=== PATIENT | female | born 1975 | race Hispanic/Latino ===

== ENCOUNTER → 2016-12-21 | Outpatient (CLI) | payer OTHER ==
--- NOTE | 2016-12-21 17:03 | DI ---
XR MYELOGRAM, LUMBOSACRAL,12/21/2016 3:09 PM: Clinical History: Lumbar radiculopathy. Previous Exam: None at this facility. Procedure: Risks, benefits and alternatives were explained to the patient and informed written consen t obtained. The patient was placed supine on the fluoroscopy table and the lower back prepped and draped in usual sterile fashion. 1% lidocaine was used for local anesthesia. Under fluoroscopic guidance, a 6 cm 23-gauge spinal needle was advanced into the thecal sac at the L5 level. 4 vials of CSF were removed for laboratory analysis. 10 cc of Isovue 300 were then administered intrathecally. Images were obtained to document contrast within the thecal sac. The patient tolerated the procedure well and was sent to the CT scanner in good condition. Findings: Images demonstrate a needle at the L5 level. There is contrast noted within the lumbar and thoracic spine. Impression: Successful myelogram.
--- NOTE | 2016-12-22 09:22 | DI ---
CT THORACIC SPINE W/CONTRAST,12/21/2016 3:08 PM: Clinical History: Right sided lumbar radiculopathy. Previous Exam: None at this facility. Findings: Multiple helically acquired CT images are obtained through the thoracic spine following intrathecal a dministration of Isovue 300, and demonstrate anatomic alignment without fractures. Vertebral body hei ght is preserved. The spinal cord descends normally with normal course and caliber and a normal conus at the L1 level. The lungs are clear. Individual intervertebral disc spaces: T1/2: No significant stenosis. C2/3: No significant stenosis. C3/4: No significant stenosis. T4/T5: No significant stenosis. C5/6: No significant stenosis. C6/7: No significant stenosis. T7/8: No significant stenosis. T8/9: No significant stenosis. T9/T10: No significant stenosis. T10/11: There is disc desiccation and a broad-based disc bulge with some mild facet hypertrophy contr ibuting to mild bilateral neural foraminal narrowing. T11/12: There is a broad-based disc bulge without significant stenosis. T12/L1: No significant stenosis. Impression: Broad-based disc bulges at T. 10/11 and T. 11/12 without significant stenosis.
--- NOTE | 2016-12-22 09:22 | DI ---
CT LUMBAR SPINE W/CONTRAST,12/21/2016 3:08 PM: Clinical History: Right sided low back pain. Previous Exam: MRI lumbar spine performed March 28, 2016 Findings: Multiple helically acquired CT images are obtained through the lumbar spine after intrathecal adminis tration of Isovue 300, and demonstrate mild facet hypertrophy at the L4/5 level. There is ligamentum flavum hypertrophy and a broad-based disc bulge at this level which contributes to moderate central c anal stenosis with no significant neural foraminal narrowing. There is a broad-based disc bulge at the L2/3 level with some facet and ligamentum flavum hypertrophy contributing to mild central canal stenosis without significant neural foraminal narrowing. There is no significant stenosis at the L1/2 level. Limited evaluation of surrounding soft tissues is unremarkable. There is no evidence of spondylolysis nor spondylolisthesis. There is some fat stranding of the subcutaneous fat. Impression: Facet hypertrophy at the L4/5 level with a broad-based disc bulge contributing to moderate central ca nal stenosis with no significant neural foraminal narrowing. Broad-based disc bulge with mild facet and ligamentum flavum hypertrophy at the L2/3 level without si gnificant stenosis.
== END ==
LOC: RAD 15:06
PROVIDERS: ATTEND Neurological Surgery
DX: M54.16 Radiculopathy, lumbar region (principal); M54.6 Pain in thoracic spine
CPT/HCPCS: 62270; 72129; 72132; 72255; 72265

== ENCOUNTER 2016-12-24 15:20 | Emergency (ER) | payer OTHER ==
[2016-12-24] MEDS ORDERED: DEXAMETHASONE PF 10 MG/1 ML VIAL IV ONE (15:33)
[2016-12-24] MEDS ORDERED: diphenhydrAMINE 50 MG/1 ML VIAL IVP ONE (15:33)
[2016-12-24] MEDS ORDERED: Sodium Chloride 0.9% 1,000 ML PRIMARY IV ONE (15:33)
[2016-12-24] MEDS ORDERED: NORMAL SALINE 10 ML SYRINGE FLUSH IVP PRN (15:33)
[2016-12-24] MEDS ORDERED: Prochlorperazine Edisylate Inj 10mg/2ml vial IVP ONE (15:33)
[2016-12-24 15:35] VITALS: RESP 12; TEMP 95.5
[2016-12-24 16:13] LABS: BASOPHILS # (AUTO) 0.05 10*3/UL; BASOPHILS % (AUTO) 0.6 % (0-1); EOSINOPHILS # (AUTO) 0.22 10*3/UL; EOSINOPHILS % (AUTO) 2.8 % (0-8); HEMATOCRIT 44.4 % (37.0-47.0); HEMOGLOBIN 15.2 g/dL (12.0-16.0); LYMPHOCYTES # (AUTO) 2.26 10*3/uL; MEAN CORPUSCULAR HGB CONC 34.2 g/dL (33-37); MEAN CORPUSCULAR VOLUME 90.6 FL (81-99); MEAN PLATELET VOLUME 10.3 FL (7.4-12.2); MONOCYTES % (AUTO) 7.6 % (5-15); NEUTROPHILS # (AUTO) 4.78 10*3/UL; NEUTROPHILS % (AUTO) 60.2 % (50-80)
[2016-12-24 16:14] LABS: PLATELET MORPHOLOGY COMMENT NORMAL MORPHOLOGY (NORM); RBC MORPHOLOGY COMMENT NORMAL MORPHOLOGY (NORM); WBC MORPHOLOGY COMMENT NORMAL MORPHOLOGY (NORM)
[2016-12-24 16:27] LABS: BLOOD UREA NITROGEN 9 mg/dL (7-22); BUN/CREATININE RATIO 12.85 (6-20); C-REACTIVE PROTEIN 0.7 mg/dL (0.0-0.9); CALCIUM 9.2 mg/dL (8.7-10.7); EST GLOMERULAR FILTRATION > 60 (>60 ml/min/1.73m(2)); SERUM ALBUMIN 3.8 g/dL (3.5-4.8)
--- NOTE | 2016-12-24 18:55 | PDOC ---
Headache HPI - General Chief Complaint: Headache Stated Complaint: calderón, dizzy, nausea times 4 days Date Seen by Provider: 12/24/16 Time Seen by Provider: 15:30 Source: POSITIVE: Patient Exam Limitations: POSITIVE: No limitations Nurse's Notes Reviewed & Considered: Yes - History of Present Illness Initial Comments: The patient is a 41-year-old female who presents to the emergency department with headache. She states that 4 days ago she underwent a myelogram to evaluate her persistent right leg pain and numbness. She states that since the procedure she has had a headache. She has associated lightheadedness, sensitivity to light and smell, nausea. Her headache is significantly worsened with standing and improved with lying down. She has been trying to push fluids and take caffeine at home however has not had any significant improvement. She states that yesterday she had some subjective fevers and chills although none today. She denies any change in vision other than light sensitivity, numbness or weakness in her extremities except for her chronic symptoms, abdominal pain or any other associated symptoms. - Patient Home Medications Home Medications: Home Medications Albuterol Sulfate [Proair Hfa] 2 puff INH Q4-6H #1 inh 03/18/16 Fluticasone Propionate [Flonase Allergy Relief] 2 spr JOHN BID #1 spr 03/18/16 Ibuprofen 1 tab PO TID #90 tab 07/12/16 Carisoprodol 1 tab PO QHS #14 tab 08/11/16 Oxycodone HCl/Acetaminophen [Oxycodon-Acetaminophen 7.5-325] 1 tab PO Q6H #40 tab 10/03/16 Gabapentin 2 tab PO TID #180 tab 11/21/16 Promethazine HCl [Phenergan] 25 mg PO Q6H PRN #10 tab 12/24/16 - Patient Allergies Allergies/Adverse Reactions: Allergies Allergy/AdvReac Type Severity Reaction Status Date / Time hydrocodone Allergy Intermediate Rash, Verified 12/24/16 16:30 Itching cephalexin monohydrate Allergy Anaphylaxis Verified 12/24/16 16:30 [From Keflex] naproxen Allergy VOMITING Verified 12/24/16 16:30 cyclobenzaprine HCl AdvReac NOT Verified 12/24/16 16:30 [From Flexeril] APPLICABLE sulfamethoxazole AdvReac VOMITING Verified 12/24/16 16:30 [From Bactrim] trimethoprim [From Bactrim] AdvReac VOMITING Verified 12/24/16 16:30 Past Medical History - heen HEENT History: Other (please comment) Additional HEENT History: HX TONSILECTOMY Cardiovascular History: Other (please comment) Additional Cardiovasular History: Varicose veins Respiratory History: Asthma Additional Respiratory History: ADMITS HX ASTHMA BUT NOTHING SIG FOR YRS. ONLY HX OCC EPISODES Gastrointestinal History: Denies History Additional Gastrointestinal History: Appendecomy, RIGHT ANKLE, PARTIAL HYSTERECTOMY, APPENDECTOMY Genitourinary History: Denies History Endocrine History: Denies History Musculoskeletal History: Arthritis, Back Pain, Other (please comment) Prosthesis or Implant: No Additional Musculoskeletal History: APPROX ONE YEAR AGO HAD LEFT HAND INJURED FROM POP UP CAMPER AND SURGICALLY REPAIRED BY DR. TALBOT. FOOT SURGERY--had a cyst above ankle, had this removed, and had a cadaver bone graft. Neurological History: Migraines Blood Disorders: Denies History Psychiatric History: Anxiety Disorders Additional Psychiatric History: history of ETOH abuse History of Sexually Transmitted Diseases: No Cancer History: Denies History In Past Year Been Physically Harmed or Verbally Threatened: No History of MDRO: No History of Other Communicable Diseases: No Tobacco Use: Current Every Day Smoker Alcohol Use: Sober Substance Use Type: None Previous Surgical History: Yes Type / Date of Surgery: LORETTA SMITH 01/25/2016. TONSILS. SURGERY RIGHT ANKLE 2011. HYSTERECTOMY 2009. LEFT HAND Anesthesia Reactions: No Malignant Hyperthermia: No Significant Family History: No pertinent family hx Past Medical History Reviewed: Reviewed - No Changes ROS - Limitations ROS Limitations: No Limitations Constitution: REPORTS: Chills (Yesterday none today), Fever (Subjective fevers Yesterday, none today) Cardiovascular: REPORTS: Denies Cardiac Symptoms Respiratory: REPORTS: Denies Resp Symptoms Neurological: REPORTS: Headache, Dizziness. DENIES: Numbness, Fainting, Difficulty Walking, Seizure Activity, Dysphagia, Weakness Gastrointestinal: REPORTS: Nausea. DENIES: Vomitting Genitourinary: REPORTS: Denies Symptoms Eyes: REPORTS: Other (Light sensitivity) Headache Exam - General Appearance General Appearance: POSITIVE: Alert, Cooperative, No Acute Distress - HEENT Head / Face: POSITIVE: No Facial Swelling Eyes: POSITIVE: Inspection Normal, PERRL, EOM's Intact Ears: POSITIVE: Ears Normal Inspection, TM Normal Inspection Nose: POSITIVE: Inspection Normal Oropharynx: POSITIVE: External Inspection Nml - Neck Neck: POSITIVE: Normal Inspection. NEGATIVE: Lymphadenopathy - Respiratory / CVS Respiratory / CVS: POSITIVE: No Respiratory Distress, Heart Sounds Normal, Regular Rate/Rhythm, Breath Sounds Normal Peripheral Pulses: Dorsalis-pedis (R): 2+, Dorsalis-pedis (L): 2+ - Abdomen Abdomen: Soft: (All Quadrants), Denies Tenderness: (All Quadrants), No Distention: (All Quadrants) Additional Abdominal Details: Examination of the lower back at the site of the myelogram reveals no evidence of erythema, swelling or drainage - Skin Skin: POSITIVE: Intact - Extremities Extremity: Normal ROM: (All Extremities), Normal Inspection: (All Extremities) - Neuro / Psych Higher Functions: POSITIVE: Oriented x3, Normal Speech Cranial Nerves: POSITIVE: Normal As Tested Sensorimotor: POSITIVE: No Motor Deficits, No Sensory Deficits Headache Progress - Results Reviewed by me Lab Results Reviewed: Yes Lab Results:: Laboratory Results 12/24/16 Range/Units 15:40 WBC 7.93 (4.8-10.8) 10^3/uL RBC 4.90 (4.20-5.40) 10^6/uL Hgb 15.2 (12.0-16.0) g/dL Hct 44.4 (37.0-47.0) % MCV 90.6 (81-99) FL MCH 31.0 (27-31) PG MCHC 34.2 (33-37) g/dL RDW Std Deviation 43.3 (39-50) fL RDW Coeff of [place]quita 13.3 (11.5-14.5) % Plt Count 245 (140-350) 10*3/uL MPV 10.3 (7.4-12.2) FL Immature Gran % (Auto) 0.3 (0-5) % Neut % (Auto) 60.2 (50-80) % Lymph % (Auto) 28.5 (10-50) % Thomas % (Auto) 7.6 (5-15) % Eos % (Auto) 2.8 (0-8) % Baso % (Auto) 0.6 (0-1) % Immature Gran # (Auto) 0.02 10*3/UL Neut # (Auto) 4.78 10*3/UL Lymph # (Auto) 2.26 10*3/uL Thomas # (Auto) 0.60 (0.3-0.8) 10*3/UL Eos # (Auto) 0.22 10*3/UL Baso # (Auto) 0.05 10*3/UL WBC Morphology Comment Normal morphology (NORM) Plt Morphology Comment Normal morphology (NORM) RBC Morph Comment Normal morphology (NORM) Sodium 135 (135-145) meq/L Potassium 4.3 (3.8-5.2) meq/L Chloride 102 (98-112) meq/L Carbon Dioxide 25 (23-33) meq/L Anion Gap 8 (5-20) BUN 9 (7-22) mg/dL Creatinine 0.7 (0.50-1.20) mg/dL Estimated GFR > 60 (>60 ml/min/1.73m(2)) BUN/Creatinine Ratio 12.85 (6-20) Glucose 103 (78-110) mg/dL Calculated Osmolality 278.0 (267-292) mOsm/kg Calcium 9.2 (8.7-10.7) mg/dL Total Bilirubin 0.4 (0.3-1.2) mg/dL AST 31 (8-39) IU/L ALT 42 (9-52) IU/L Alkaline Phosphatase 54 (38-126) IU/L C-Reactive Protein 0.7 (0.0-0.9) mg/dL Total Protein 6.8 (6.1-8.0) g/dL Albumin 3.8 (3.5-4.8) g/dL Globulin 3.0 (2.50-4.10) g/dL Albumin/Globulin Ratio 1.20 L (1.3-2.0) mg/g - Patient's Progress MDM / ED Course: Shortly after arrival an IV was established and she did receive a 1 L bolus of normal saline as well as Decadron 10 mg IV, Benadryl 25 mg IV and Compazine 5 mg IV. Her headache symptoms are very consistent clinically with a spinal headache related to her recent myelogram. I did contact Niko from anesthesia and he did come and consult with the patient. After discussion with the patient the decision was made to go ahead and wait another day or 2 before doing a blood patch. The patient seemed to respond well to the medication given here in the ER and her headache was significantly improved as well as her light sensitivity. Her lab work is all essentially normal with a normal CRP and normal white count. She is advised to rest and push fluids. Continue caffeine. She was prescribed Phenergan as needed for nausea/headache. She will return to the emergency room if worsening headache, any worsening or change in symptoms. She will follow-up with Niko from anesthesia for a blood patch if continued headache by Sunday. She was given a note not to work for the next 2 days. - Consult Counseled: POSITIVE: Patient, RE: Lab Results, RE: DX, RE: Need for F/U Patient Care Time - Estimated PCT Patient Care Time (In Minutes): 30 Vital Signs - Recent Vital Signs Vital Signs: Vital Signs (Last 8 hours) Temp Pulse Resp BP Pulse Ox 12/24/16 15:29 95.5 F L 77 12 142/106 94 - VS Reviewed Vital Signs Reviewed: Yes Discharge Clinical Impression: Spinal headache Discharge Disposition: Discharged to Home Condition: Stable Prescriptions / Orders: Promethazine HCl [Phenergan] 25 mg PO Q6H PRN #10 tab PRN Reason: Nausea / Vomiting Patient Instructions Given at Discharge: Acute Headache (ED) Additional Instructions: The headache that you're experiencing is likely related to the recent spinal from your myelogram. Recommend rest and push fluids. Continue caffeine in the form of Excedrin Migraine or beverages containing caffeine. You've also been prescribed Phenergan 25 mg every 6 hours as needed for nausea/vomiting. This will also help with headache. Return to the emergency room if worsening headache, any worsening or change in symptoms. If the headache is not relieved here in the next day or 2 Niko from anesthesia stated he would do your blood patch. Just call the hospital and ask for the outpatient surgery staff and they can get a message to Niko. Follow Up With: JI STAUFFER [Primary Care Provider] -
== END 2016-12-24 16:43 | disposition home or self-care (01) ==
LOC: ER 15:20
DX: T88.59XA Other complications of anesthesia, initial encounter (principal); G44.40 Drug-induced headache, not elsewhere classified, not intractable; R42 Dizziness and giddiness; R11.0 Nausea; R50.9 Fever, unspecified; Z98.890 Other specified postprocedural states; Z72.0 Tobacco use
CPT/HCPCS: 80053; 85025; 86140; 96374; 96375; 99283 ×2; J1200; J0780; J1100; J7030

== ENCOUNTER → 2017-01-02 | Outpatient (CLI) | payer OTHER ==
--- NOTE | 2017-01-02 14:54 | DI ---
LEFT ANKLE, 01/02/2017 2:17 PM: Clinical History: Left ankle pain. Previous Exam: None at this facility. 3 views are submitted. There is soft tissue swelling over the lateral malleolus. There is no ankle ef fusion. No fracture or dislocation is identified. Reading: No fracture or dislocation noted. There is soft tissue swelling laterally.
== END ==
LOC: MOB RAD 14:23
PROVIDERS: ATTEND Physician Assistant
DX: M25.572 Pain in left ankle and joints of left foot (principal); X50.1XXA Overexertion from prolonged static or awkward postures, initial encounter
CPT/HCPCS: 73610